=== PATIENT | male | born 1975 | race Caucasian/White ===

== ENCOUNTER 2022-12-04 07:39 | Outpatient (CLI) | payer OTHER, SELFPAY ==
[2022-12-04 10:39] LABS: Chloride* 108 mmol/L (96-114); Potassium* 4.5 mmol/L (3.6-5.1); Sodium* 141 mmol/L (135-149)
[2022-12-04 10:42] LABS: Blood Urea Nitrogen* 18 mg/dL (5-24); Carbon Dioxide* 25 mmol/L (20-32); Cholesterol* 163 mg/dL (90-199); Creatinine* 0.8 mg/dL (0.5-1.5); Estimated Glomerular Filt Rate 111 ml/min
[2022-12-04 10:43] LABS: Calcium* 9.3 mg/dL (8.4-10.6); Glucose* 100 mg/dL (60-115); HDL Cholesterol* 44 mg/dL (>=40); LDL Cholesterol Calculated 97 mg/dL (<100); Triglycerides* 112 mg/dL (40-149)
== END 2022-12-04 07:40 | disposition home or self-care (01) ==
PROVIDERS: PCP Family Medicine; Visit Provider Family Medicine
DX: Z00.00 Encounter for general adult medical examination without abnormal findings (principal); Z13.6 Encounter for screening for cardiovascular disorders
CPT/HCPCS: 80048; 80061

== ENCOUNTER 2023-01-03 06:55 | Outpatient (CLI) | payer OTHER, SELFPAY ==
--- NOTE | 2023-01-03 07:34 | W.ANESCHARGE ---
Anesthesia Charges Start Date/Time Anesthesia Start Date: 01/03/23 Anesthesia Start Time: 07:40 Stop Date/Time Anesthesia Stop Date: 01/03/23 Anesthesia Stop Time: 08:03
--- NOTE | 2023-01-03 08:09 | W.ANESCHARGE ---
Anesthesia Charges Start Date/Time Anesthesia Start Date: 01/03/23 Anesthesia Start Time: 07:40 Stop Date/Time Anesthesia Stop Date: 01/03/23 Anesthesia Stop Time: 08:03
== END 2023-01-03 06:56 | disposition home or self-care (01) ==
PROVIDERS: PCP Family Medicine; Visit Provider Internal Medicine
DX: Z12.11 Encounter for screening for malignant neoplasm of colon (principal); K57.30 Diverticulosis of large intestine without perforation or abscess without bleeding
CPT/HCPCS: 00811; 00812; 45378; 45380; J2704